=== PATIENT | male | born 1955 | race Caucasian/White ===

== ENCOUNTER 2022-01-13 19:56 | Emergency (ER) | payer OTHER, MEDICAID, SELFPAY ==
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
--- NOTE | ~2022-01-13 | XR_ITS ---
EXAMINATION: XR CHEST CLINICAL INFORMATION: Obesity COMPARISON: None TECHNIQUE: Frontal view of the chest was obtained. FINDINGS: Cardiac silhouette is normal in size. Hypoinflated lungs. No lobar consolidation. No pleural effusion or pneumothorax. XR/XR chest 1V IMPRESSION: No acute pulmonary pathology.
--- NOTE | 2022-01-13 20:03 | ECG_ITS ---
Test Reason : sob Blood Pressure : / mmHG Vent. Rate : 074 BPM Atrial Rate : 074 BPM P-R Int : 128 ms QRS Dur : 108 ms QT Int : 406 ms P-R-T Axes : 025 -23 009 degrees QTc Int : 450 ms Normal sinus rhythm Incomplete right bundle branch block Inferior infarct , age undetermined Abnormal ECG No previous ECGs available Referred By: Theresa Canchola Electronically Signed By:RACHAEL FELTON
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
[2022-01-13 20:23] VITALS: BMI 29.2
[2022-01-13 20:44] LABS: Basophils Percent Auto 0.5 % (0-2); Imm Gran Abs Auto 0.02 X10*3/uL (0.00-0.03); Imm Gran Pct Auto 0.3 % (0.0-0.4); PLT CLUMP 1; SCAN SMEAR FLAG 1
[2022-01-13 20:45] LABS: Eosinophils Absolute Auto 0.2 X10*3/uL (0.0-0.4); Eosinophils Percent Auto 2.6 % (0-4); Hematocrit 42.5 % (42.0-52.0); Hemoglobin 14.4 g/dl (14.0-18.0); Lymphocytes Absolute Auto 0.9 X10*3/uL (1.2-4.9); Lymphocytes Percent Auto 13.4 % (20-40); Mean Corpuscular HGB Conc 33.9 g/dl (31.0-36.0); Mean Corpuscular Hemoglobin 32.5 pg (27.0-33.0); Mean Corpuscular Volume 95.9 fL (80.0-98.0); Mean Platelet Volume 10.4 fL (9.4-12.4); Monocytes Absolute Auto 0.6 X10*3/uL (0.1-1.2); Neutrophils Absolute Auto 4.9 x10*3/uL (2.0-8.3); Neutrophils Percent Auto 74.2 % (45-73); Red Blood Count 4.43 X10*6/uL (4.60-5.80); Red Cell Distribution Width 11.6 % (11.0-16.0)
[2022-01-13 20:49] LABS: MANUAL DIFF FLAG NO; Platelet Count 151 X10*3/uL (160-400); White Blood Count 6.6 X10*3/uL (4.8-10.8)
[2022-01-13 20:56] LABS: Anion Gap 17 (12-20); Blood Urea Nitrogen 22 mg/dL (9-16); Calcium 8.9 mg/dL (8.4-10.2); Carbon Dioxide 23 mmol/L (22-29); Chloride 104 mmol/L (96-108); Creatinine Clr Calc Pharmacy 52.9; Estimated Glomerular Filt Rate 57; Ethanol 83 mg/dL; Glucose Random 135 mg/dL (60-115); Potassium 3.9 mmol/L (3.3-5.1); Sodium 140 mmol/L (135-145)
[2022-01-13 21:02] LABS: Troponin-I High Sensitivity 6.8 ng/L (<3.5-35.0)
[2022-01-13 22:00] LABS: Appearance Urine Clear; Color Urine Straw; Glucose Urine UA Negative (Negative); Leukocyte Esterase Urine Negative (Negative); Nitrite Urine Negative (Negative); PH 5.5 (5.0-9.0); Specific Gravity - Urine <= 1.005 (1.005-1.025); Urine Blood Trace (Negative); Urine Ketones Negative (Negative); Urine Protein Negative (Neg-Trace)
[2022-01-13 22:08] LABS: Bacteria Urine None Seen (None Seen); Hyaline Casts Urine 0-2 /LPF (0-2); RBC Urine 0-2 /HPF (0-2); Squamous Epithelial Cell Urine 0-2 /HPF (0-2); WBC Urine 0-5 /HPF (0-5)
[2022-01-13 22:26] LABS: Amphetamine Screen Urine Not Detected (Not Detect); Barbiturates, Urine Not Detected (Not Detect); Benzodiazepines Screen Urine Not Detected (Not Detect); Cannabinoid Screen Urine Not Detected (Not Detect); Cocaine Screen Urine Not Detected (Not Detect); Fentanyl, urine Not Detected (Not Detect); Opiate Screen Urine Not Detected (Not Detect); Phencyclidine Screen Urine Not Detected (Not Detect)
[2022-01-13 22:44] LABS: Troponin-I High Sensitivity 8.9 ng/L (<3.5-35.0)
== END 2022-01-13 23:13 | disposition home or self-care (01) ==
PROVIDERS: Nurse Practitioner Family; Emergency Provider Internal Medicine
DX: S13.4XXA Sprain of ligaments of cervical spine, initial encounter (principal); R07.89 Other chest pain; R51.9 Headache, unspecified; M54.2 Cervicalgia; V43.52XA Car driver injured in collision with other type car in traffic accident, initial encounter; Y93.9 Activity, unspecified; Y92.410 Unspecified street and highway as the place of occurrence of the external cause; Y99.9 Unspecified external cause status; Z79.899 Other long term (current) drug therapy
CPT/HCPCS: 36415; 70450; 71045; 80048; 80307; 81001; 82077; 84484; 85025; 93005; 99283; 99284

== ENCOUNTER 2025-01-27 12:05 | Inpatient (IN) | payer MEDICARE, MEDICAID, SELFPAY ==
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
--- NOTE | ~2025-01-27 | CT_ITS ---
CLINICAL HISTORY: left sided weakness, cerebellar findings CT angiography head and neck with contrast. 3D Postprocessing. Comparison: None provided Findings: Bovine arch. Intracranial arteries are patent. No aneurysm, dissection, hemodynamically significant stenoses, or occlusion. No abnormal intracranial enhancement. The visualized thyroid gland is unremarkable. No cervical mass or fluid collection. Lung apices clear. No acute fracture. Mild calcified atheromatous plaque of the proximal right ICA. The internal carotids and common carotids arteries are patent. IMPRESSION: 1. No acute intracranial findings. 2. Bovine aortic arch. 3. Mild calcified atheromatous plaque of the proximal right internal carotid artery. This document has been electronically signed by: Priyank Aguilera MD on 01/27/2025 14:50:53
--- NOTE | ~2025-01-27 | MR_ITS ---
CLINICAL HISTORY: TIA MR Brain without gadolinium Comparison: CT of the brain 01/27/2025 at 2:23 p.m. Findings: Right thalamic lacunar focus of the increased T2 and FLAIR signal and increased DWI signal, axial image number 13 of 25 series 6. Partially empty sella, sagittal image number 13 of 25. No midline shift. No hydrocephalus. Vascular flow voids are intact. Orbital contents are unremarkable. The sinuses and mastoid air cells are clear. No focal bone lesion. Few periventricular foci of increased T2 and FLAIR signal. IMPRESSION: 1. Right thalamic lacunar subacute ischemic event. Clinical correlation suggested. 2. Chronic periventricular microvascular ischemic changes. 3. Partially empty sella. This document has been electronically signed by: Priyank Aguilera MD on 01/27/2025 17:35:36
--- NOTE | ~2025-01-27 | CT_ITS ---
CLINICAL HISTORY: LEF SIDED WEAKNESS CT head without contrast Comparison: None provided Findings: No intra-axial mass, midline shift, hydrocephalus, or acute hemorrhage. Mild heterogeneous low attenuation in the periventricular white matter. Sxva-[id number]-pzbymkov cerebral atrophy. There is no sinus or mastoid fluid. The orbits are within normal limits. No skull fracture. IMPRESSION: 1. No acute intracranial findings. 2. Mild chronic periventricular microvascular ischemic disease 3. [id number] cerebral atrophy. This document has been electronically signed by: Priyank Aguilera MD on 01/27/2025 14:36:32
[2025-01-27 12:10] VITALS: BP 157/89; PULSE 89; RESP 16; TEMP 36.4; O2SAT 95; BMI 21.9
--- NOTE | 2025-01-27 12:15 | ED_ITS ---
HPI - General Adult General Chief complaint: Neuro Symptoms/Deficit Stated complaint: L sided arm numbness for hours, diabete? Time Seen by Provider: 01/27/25 13:50 History of Present Illness ED Provider: Karen CA narrative: The patient is a 69-year-old male who has had numbness in his left arm and left leg and some difficulty walking since yesterday. The patient says that he lives in [place]. Despite his symptoms he was able to drive himself to visit a friend who was also his FIELD CONTACT TECHNICIAN in [place]. The patient has a history of a stroke. His FIELD CONTACT TECHNICIAN was concerned that his symptoms could potentially represent another stroke and so she advised him to come to the hospital. He then drove himself to the hospital. He says that he estimates that his symptoms began yesterday afternoon at around 3PM. No fever, sweats, chills. No headache. No chest pain. The patient has a history of coronary disease. He had a STEMI in 2009 with three-vessel disease. He was given a drug-eluting stent in the right coronary artery. He also has a history of CHF. He has a history of diabetes and is on insulin. Also hypertension and hyperlipidemia. He says that he had a stroke at age 54. The patient is usual medications include aspirin, atorvastatin, insulin, and ezetimbe. However he says he has not picked up his prescriptions recently and may has been off his medications for as long as a couple of months. Related Data Allergies Allergy/AdvReac Type Severity Reaction Status Date / Time No Known Allergies Allergy Verified 01/27/25 12:14 Review of Systems 2 Review of Systems: Yes all other systems are reviewed and are negative [facility] Social History Social History Alcohol intake: current Alcohol intake frequency: 3 or more drinks per day Alcohol type: beer Smoked in Last 30 Days: No Use of substances other than those prescribed or required for medical reasons: No Advance Directives: No Advance Directives Information Provided: No Physical Exam ED Vital Signs: Vital Signs - 24 hr 01/27/25 12:10 01/27/25 12:39 Temperature 97.6 F Pulse Rate 89 90 Respiratory Rate 16 16 Blood Pressure 157/89 H 142/96 H Pulse Oximetry 95 97 Oxygen Delivery Method Room Air Room Air BMI result Body Mass Index 21.9 Const Other: The patient is a frail, chronically ill-appearing 69-year-old male who was awake and alert. He does not appear uncomfortable or in respiratory distress. No obvious neurological deficit was apparent. HENMT Other: The face is symmetrical. ?Mucous membranes moist. Eyes Other: Pupils are round equal, lateral gaze is intact bilaterally. Visual oreilly are intact to confrontation. Neck Neck: Yes normal visual inspection, Yes full ROM and Yes no JVD Resp Effort & Inspection: normal respiratory effort Auscultation: clear to auscultation bilaterally Cardio Rate: regular rate Rhythm: regular rhythm Heart sounds: S1 normal heart sound present and S2 normal heart sound present GI Other: The abdomen is soft and nontender Skin Other: Skin is dry and unremarkable Neuro Other: On my initial exam the patient was awake and alert. He has an odd demeanor but he did not seem to have any mental status changes. He seemed appropriately oriented to self, time, and place. Lateral gaze was intact. Visual oreilly were intact to confrontation. There was no facial asymmetry. Speech was clear without aphasia or dysarthria. I felt he had some mild left-sided pronator drift. I also felt that he had some difficulty with left arm finger-nose. I also felt he had a distinctly abnormal gait. His NIH stroke scale was 2 primarily for the left arm symptoms. When I reexamined him after his imaging studies I felt his exam was better. There was still possibly some very mild, almost equivocal left arm pronator drift. However on my repeat exam his left arm finger-nose was much better and his gait was also better. He had normal strength in his legs and heel-ramirez was normal bilaterally. On my initial exam I had not tested his heel-ramirez. Extrem Other: There is no calf swelling or tenderness. No asymmetry. No peripheral edema. Course Course Course Narrative: Rapid medical examination performed in triage by Mer Moyer PA-C. Patient is a 69 year old assigned male at presenting to the emergency department with paresthesias. Patient states that he is having weakness and extremity tingling. Detailed physical exam and review of systems are deferred to the access clinician. EKG and lab ordered. Patient placed back in the waiting room pending room availability and results. Medications Administered Discontinued Medications Generic Name Dose Route Start Last Admin Trade Name Freq PRN Reason Stop Dose Admin Aspirin 325 mg 01/27/25 15:45 01/27/25 16:13 Aspirin 325 Mg Tablet PO 01/27/25 15:46 325 mg ONCE ONE Administration Medical Decision Making Medical Decision Making [facility] Narrative: The patient is a 69-year-old male who reports a history of a stroke at age 54. He also has a history of hypertension, hyperlipidemia and type 2 diabetes as well as coronary disease with a right coronary artery stent. He came to the emergency room today because of left arm and left leg symptoms as well as worsening gait. On my initial exam I thought he had cerebellar findings in the left arm and a very abnormal gait. When I re-examined him after imaging studies his exam was improved. The patient was considered for thrombolytic therapy for a possible stroke but since his symptoms began yesterday at 15:00 he was outside the window for consideration of thrombolytic therapy. On my initial exam I felt that I has a high suspicion for the possibility of a small stroke, possibly a cerebellar stroke. However his symptoms improved significantly between my 1st exam and the exam I performed after his imaging studies were done. The patient also reported that his sense of numbness in the left arm had improved. It is possible that his symptoms could represent a TIA syndrome more than a stroke syndrome. In any event I think that hospitalization is reasonable given his multiple risk factors for vascular disease and his report of not being very compliant with his medications recently. Lab Data 01/27/25 12:46 01/27/25 12:46 Labs: Lab Results 01/27/25 01/27/25 Range/Units 12:46 14:13 WBC 7.2 (4.8-10.8) X10*3/uL RBC 4.44 L (4.60-5.80) X10*6/uL Hgb 15.2 (14.0-18.0) g/dl Hct 42.6 (42.0-52.0) % MCV 95.9 (80.0-98.0) fL MCH 34.2 H (27.0-33.0) pg MCHC 35.7 (31.0-36.0) g/dl RDW 11.7 (11.0-16.0) % Plt Count 147 L (160-400) X10*3/uL MPV 10.8 (9.4-12.4) fL Immature Gran % (Auto) 0.1 (0.0-0.4) % Neut % (Auto) 81.2 H (45-73) % Lymph % (Auto) 10.2 L (20-40) % [place] % (Auto) 7.2 (2-11) % Eos % (Auto) 0.7 (0-4) % Baso % (Auto) 0.6 (0-2) % Lymph # (Auto) 0.7 L (1.2-4.9) X10*3/uL [place] # (Auto) 0.5 (0.1-1.2) X10*3/uL Eos # (Auto) 0.1 (0.0-0.4) X10*3/uL Baso # (Auto) 0.0 (0.0-0.2) X10*3/uL Abs Immat Gran (auto) 0.01 (0.00-0.03) X10*3/uL Absolute Neuts (auto) 5.8 (2.0-8.3) x10*3/uL Absolute Nucleated RBC 0.000 (0.0-0.012) X10*3/uL Nucleated RBC % (auto) 0.0 (0.0-0.2) /100WBC PT 11.5 (10.9-12.4) SEC INR 1.0 (0.9-1.1) Sodium 141 (135-145) mmol/L Potassium 4.4 (3.3-5.1) mmol/L Chloride 105 (96-108) mmol/L Carbon Dioxide 28 (22-29) mmol/L Anion Gap 12 (12-20) BUN 15 (9-16) mg/dL Creatinine 1.24 (0.5-1.4) mg/dL Estim Creat Clear Calc 42.6 Estimated GFR 58 Random Glucose 118 H (60-115) mg/dL Calcium 9.4 (8.4-10.2) mg/dL Magnesium 2.1 (1.6-2.6) mg/dL Total Bilirubin 1.0 (0.0-1.0) mg/dL AST 32 (5-37) U/L ALT 25 (0-40) U/L Alkaline Phosphatase 52 (39-117) U/L Troponin I High Sens 9.3 (<3.5-35.0) ng/L Total Protein 7.4 (6.5-8.0) g/dL Albumin 4.3 (3.5-5.0) g/dL Urine Color Yellow Urine Appearance Clear Urine pH 7.0 (5.0-9.0) Ur Specific [place] 1.020 (1.005-1.025) Urine Protein Trace (Neg-Trace) mg/dL Urine Glucose (UA) Negative (Negative) mg/dL Urine Ketones Trace (Negative) mg/dL Urine Blood Negative (Negative) Urine Nitrite Negative (Negative) Ur Leukocyte Esterase Negative (Negative) Independent Interpretation I performed an independent interpretation of an: EKG Interpretation: EKG at 13:01 shows normal sinus rhythm at 84 beats per minute. No significant change from previous EKG. Discharge Plan Discharge Clinical Impression: Left arm weakness, Difficulty walking Patient Disposition: Admitted As Inpatient Print Language: Luxembourgish
--- NOTE | 2025-01-27 12:16 | ECG_ITS ---
Test Reason : PARATHESIS Blood Pressure : */* mmHG Vent. Rate : 84 BPM Atrial Rate : 84 BPM P-R Int : 132 ms QRS Dur : 98 ms QT Int : 380 ms P-R-T Axes : 24 -23 43 degrees QTcB Int : 449 ms Normal sinus rhythm Inferior infarct (cited on or before 13-Jan-2022) Abnormal ECG When compared with ECG of 13-Jan-2022 22:15, Incomplete right bundle branch block is no longer Present Nonspecific T wave abnormality has replaced inverted T waves in Inferior leads Referred By: Mer Moyer Electronically Signed By: RIOS TILLEY
--- OUTSIDE RECORDS SUMMARY | 2025-01-27 12:29 | XMS_ITS ---
Author Name [facility] Organization Unknown Encounters Encounter Type Encounter Reason Primary Diagnosis Location Date Ambulatory [facility] 06[facility]01/2024 [facility] Care Team Organization Name Specialty Phone Email Start Date End Da te [facility] 08/02/2024 025 [facility] 06/11/2024 [facility] 12/01/2023 024
--- OUTSIDE RECORDS SUMMARY | 2025-01-27 12:29 | XMS_ITS | Clinical Summary ---
Author Organization [facility] ity Address [address] [place] [address] Care Team Providers Care Residence Hall Director Name Role Phone Unavailable Primary Care Provider Unavailabl e Social History Tobacco Use Types Packs/Day Years Used Date Smoking Tobacco: Never Assessed Sex and Gender Information Value Date Recorded Sex Assigned at Not on file Legal Sex Male 6:57 AM EST Gender Identity Not on file Sexual Orientation Not on file Plan of Treatment Health Maintenance Due Date Last Done Comments Hepatitis B Vaccines (2 of 3 - 19+ 3-dose series) 11/25/2020 10/28/2020 Zoster Vaccines (3 of 3) 05/12/2022 03/17/2022, 08/2016 Depression Screening 05/16/2024 COVID-19 Vaccine ( - season) 2025 03/28/2021, 09/12/2020, 08/15/2020 Influenza Vaccine (#1) 2025 , 03/28/2021, 02/19/2019, Additional history exists RSV Immunization Adult Patients (1 - 1-dose 75+ series) 2029 DTaP,Tdap,and Td Vaccines (3 - Td or Tdap) 10/28/2030 10/28/2020, 10/01/2010 Pneumococcal Vaccine: 50+ Years Completed 04/28/2022, 11/13/2020, 05/26/2010 HIB Vaccines Aged Out No longer eligi ble based on patient's age to complete this topic HPV Vaccines Aged Out No longer eligi ble based on patient's age to complete this topic Hepatitis A Vaccines Aged Out No long er eligible based on patient's age to complete this topic IPV Vaccines Aged Out No longer eligi ble based on patient's age to complete this topic MMR Vaccines Aged Out No longer eligi ble based on patient's age to complete this topic Meningococcal ACWY Vaccine Aged Out N o longer eligible based on patient's age to complete this topic Meningococcal B Vaccine Aged Out No l onger eligible based on patient's age to complete this topic RSV Immunization Patients Under 20 months Aged Out No longer eligible based on patient's age to complete this topic Varicella Vaccines Aged Out No longer eligible based on patient's age to complete this topic
--- OUTSIDE RECORDS SUMMARY | 2025-01-27 12:29 | XMS_ITS | Patient Health Record ---
Author Organization [facility] Address [address] [place] [address] Care Team Providers Care Marketing Instructor Name Role Phone TESSA KOHLI Primary Care Provider Matt Wall Unavailable [phone] Allergies No Known Allergies Reason For Referral No Information Medications Medication SIG (Take, Route, Frequency, Duration) Notes Start Date End Date Status Metoprolol Succinate ER 100 MG 1 tablet Orally Once a day Active Lantus SoloStar 100 UNIT/ML 20 units Sub cutaneous daily Active Aspirin Adult Low Dose 81 MG 1 tablet Orally Once a day Active Zetia 10 MG 1 tablet Orally Once a day; Duration: 30 days 11/02/2022 Active metFORMIN HCl ER 500 MG 2 tablet with ev ening meal Orally Once a day; Duration: 30 days Active Tamsulosin HCl 0.4 MG 1 capsule Orally O nce a day Active Spironolactone 25 MG 1 tablet Orally Active Latanoprost 0.005 % 1 drop into affected eye in the evening Ophthalmic Once a day Active Brimonidine Tartrate 0.2 % 1 drop into a ffected eye Ophthalmic every 8 hrs Active Dorzolamide HCl 2 % 1 drop into affected eye Ophthalmic Three times a day Active Atorvastatin Calcium 80 MG 1 tablet Oral ly Once a day; Duration: 30 days Active Immunizations Vaccine Route Administration Date Status Comme nts COVID Moderna Unknown 08/15/2020 Administered COVID Moderna Unknown 09/12/2020 Administered COVID Moderna Unknown 03/28/2021 Administered COVID-19 Pfizer Unknown 04/28/2022 Administered High Dose Fluzone +65 Unknown 01/27/2024 Administered Pneumococcal polysaccharide PPV23 Unknown 11/13/2020 Ad ministered Prevnar 20 Unknown 04/28/2022 Administered Shingrix Unknown 03/17/2022 Administered Shingrix Unknown 01/27/2024 Administered TDAP Unknown 10/28/2020 Administered Social History Tobacco Use: Social History Observation Description Date Details (start date - stop date) Former Smoker NA - NA Tobacco Use/Smoking Question Answer Notes Are you a former smoker How long has it been since you last smoked? > 10 years Alcohol Screen (Audit-C) Question Answer Notes Did you have a drink contain ing alcohol in the past year? Yes How often did you have a dri nk containing alcohol in the past year? 4 or more times a week (4 points) How many drinks did you have on a typical day when you were drinking in the past year? 1 or 2 drinks (0 point) Points 4 Interpretation Positive Problems Problem Type SNOMED Code ICD Code Onset Dates Problem Status W/U Status Risk Notes Problem Disorder due to type 2 diabetes mellitus (166313166) Type 2 diabetes mellitus with unspecified complications (E11.8) Active confirmed Problem Mixed hyperlipidemia (769832371) Mixed hyperlipidemia (E78.2) Active confirmed Problem Alcohol dependence (28833474) Alcohol dependence, uncomplicated (F10.20) Active confirmed Problem Glaucoma (51266233) Unspecified glaucoma (H40.9) Active confirmed Problem Atherosclerotic heart disease of [place] coronary artery without angina pectoris (305655199564572) Atherosclerotic heart disease of [place] coronary artery without angina pectoris (I25.10) Active confirmed Problem Long-term current use of insulin (500147143) 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 Metabolic Panel [id number] Future Test Test Name Order Date COMPREHENSIVE METABOLIC PANEL 12/01/2021 HEMOGLOBIN A1C WITH EST GLUCOSE 12/02/19 LIPID PANEL 12/01/2021 MICROALBUMIN, URINE 12/01/2021 BASIC METABOLIC PANEL 11/10/2022 HEMOGLOBIN A1C WITH EST GLUCOSE 11/11/19 23 LIPID PANEL 11/10/2022 PSA, SCREEN 11/10/2022 GLUCOSE 12/14/2022 HEMOGLOBIN A1C 12/14/2022 LIPID PANEL 12/14/2022 Insurance Providers Payer Name Payer Address Payer Phone Subscriber Number Group Number Insured Name Patient Relationship to Insured Coverage Start Date Coverage End Date Medicare [address] [place] [phone] [id number] Vimal Sandhu Self - patient is the insured [place] [address] [place] [phone] [id number] Vimal Sandhu Self - patient is the insured Medical (General) History Medical History History ICD Code Type 2 diabetes mellitus Glaucoma BPH CAD and s/p stent placement in 2008 and 2012 Hyperlipidemia Surgical History Surgery Date(Month/Year) laser surgery, Dr. Orozco
[2025-01-27 12:39] VITALS: BP 142/96; PULSE 90; RESP 16; O2SAT 97
[2025-01-27 12:51] LABS: MANUAL DIFF FLAG NO
[2025-01-27 12:52] LABS: Hematocrit 42.6 % (42.0-52.0); Hemoglobin 15.2 g/dl (14.0-18.0); Imm Gran Abs Auto 0.01 X10*3/uL (0.00-0.03); Imm Gran Pct Auto 0.1 % (0.0-0.4); Lymphocytes Absolute Auto 0.7 X10*3/uL (1.2-4.9); Mean Corpuscular HGB Conc 35.7 g/dl (31.0-36.0); Mean Corpuscular Hemoglobin 34.2 pg (27.0-33.0); Mean Corpuscular Volume 95.9 fL (80.0-98.0); NRBC Abs Auto 0.000 X10*3/uL (0.0-0.012); NRBC Pct Auto 0.0 /100WBC (0.0-0.2); Platelet Count 147 X10*3/uL (160-400); Red Blood Count 4.44 X10*6/uL (4.60-5.80); White Blood Count 7.2 X10*3/uL (4.8-10.8)
[2025-01-27 12:59] LABS: INTERNATIONAL NORM RATIO 1.0 (0.9-1.1); Prothrombin Time 11.5 SEC (10.9-12.4)
--- NOTE | 2025-01-27 13:01 | PC.NURSE ---
Patient is a 69 yo male who presents with left arm numbness since last night. Placed on a quality assurance monitor final and NSR noted. Alert and oriented. Tongue midline, no droop. No drift noted in all 4 extremities. Lungs clear bilat. Respiratins even and non-labored. Abdomen soft, non-tender with positive bowel sounds. Positive pedal pulses with no edema.
[2025-01-27 13:05] LABS: Alanine Aminotransferase 25 U/L (0-40); Albumin Level 4.3 g/dL (3.5-5.0); Alkaline Phosphatase 52 U/L (39-117); Anion Gap 12 (12-20); Aspartate Amino Transferase 32 U/L (5-37); Blood Urea Nitrogen 15 mg/dL (9-16); Calcium 9.4 mg/dL (8.4-10.2); Carbon Dioxide 28 mmol/L (22-29); Chloride 105 mmol/L (96-108); Creatinine Clr Calc Pharmacy 42.6; Estimated Glomerular Filt Rate 58; Magnesium 2.1 mg/dL (1.6-2.6); Potassium 4.4 mmol/L (3.3-5.1); Sodium 141 mmol/L (135-145); Total Protein 7.4 g/dL (6.5-8.0)
[2025-01-27 13:12] LABS: Troponin-I High Sensitivity 9.3 ng/L (<3.5-35.0)
[2025-01-27 14:23] LABS: Appearance Urine Clear; Glucose Urine UA Negative (Negative); PH 7.0 (5.0-9.0); Specific Gravity - Urine 1.020 (1.005-1.025)
--- NOTE | 2025-01-27 16:20 | P.HPHOSP_ITS ---
History of Present Illness Date of Service: 01/27/25 Chief Complaint: Weakness 69-year-old man presented to the ER with left arm and left leg numbness and some difficulty walking. Apparently he was out with a friend who noticed his symptoms and told him to come to the ER. Apparently his symptoms started yesterday around 15:00. He had no difficulty with speech. He denied chest pain, shortness breath, nausea, vomiting, diarrhea, fever, chills, recent travel, sick contacts. He drove himself to the hospital. Head and neck CTA was negative for acute intracranial findings he was noted to have bovine aortic arch and mild plaque to proximal right internal carotid artery. Patient was given full-dose aspirin in the ER. He will be placed on observation for symptoms of TIA. Review of Systems 2 Review of Systems: Denies any recent fever chills or decrease in appetite respiratory denies any shortness of breath or cough cardiovascular denied chest pain gastrointestinal denies any dysphagia abdominal pain nausea vomiting or diarrhea genitourinary denies any dysuria frequency or hematuria musculoskeletal denies any joint pain or swelling neuropsych denies any weakness or seizures all other systems reviewed are negative [facility] Social History Alcohol intake: current Alcohol intake frequency: 3 or more drinks per day Alcohol type: beer Smoked in Last 30 Days: No Use of substances other than those prescribed or required for medical reasons: No Advance Directives: No Advance Directives Information Provided: No Meds Allergies Allergy/AdvReac Type Severity Reaction Status Date / Time No Known Allergies Allergy Verified 01/27/25 12:14 Active Medications: Current Medications Acetaminophen (Acetaminophen 325 Mg Tablet) 650 mg PO Q6H PRN PRN Reason: Pain, Mild 1-3,fever,headache Calcium Carbonate (Calcium Carbonate 750 Mg Tab.Chew) 750 mg PO Q4H PRN PRN Reason: Heartburn Dextrose (Dextrose 50 % 25 Gm/50 Ml Syringe) 25 gm IVPUSH Q15M PRN; Protocol PRN Reason: per Hypoglycemia Standing Ord. Enoxaparin Sodium (Enoxaparin Sodium 40 Mg/0.4 Ml Syringe) 40 mg SUBCUT Q24H EUGENIO Glucose (Glucose Gel 15 Gm Gel..Gram.) 15 gm PO Q15M PRN; Protocol PRN Reason: per Hypoglycemia Standing Ord. Insulin Human Lispro (Insulin Lispro 100 Unit/Ml 3 Ml Vial) 0 unit SUBCUT QIDACHS [facility]; Protocol Magnesium Hydroxide (Milk Of Magnesia 30 Ml Oral.Susp) 30 ml PO DAILY PRN PRN Reason: Constipation Melatonin (Melatonin 3 Mg Tablet) 6 mg PO BEDTIME PRN PRN Reason: Insomnia Ondansetron HCl (Ondansetron Hcl 4 Mg/2 Ml Vial) 4 mg IVPUSH Q8H PRN PRN Reason: Nausea and Vomiting Sodium Chloride (0.9 % Sodium Chloride Flush 3 Ml Syringe) 3 ml IVFLUSH QSHIFT [facility] Physical Exam 2 Vital Signs and Narrative: Vital Signs: Last Vital Signs Temp 97.6 F 01/27/25 12:10 Pulse 90 01/27/25 12:39 Resp 16 01/27/25 12:39 BP 142/96 H 01/27/25 12:39 Pulse Ox 97 01/27/25 12:39 O2 Del Method Room Air 01/27/25 12:39 BMI result Body Mass Index 21.9 Appearing in no acute distress head is normocephalic atraumatic eyes pupils are PERRLA sclera is anicteric mouth throat mucous membranes are intact and moist neck is supple no lymphadenopathy, no JVD noted lung sounds are clear to auscultation heart regular rate rhythm, clear S1, S2 positive bowel sounds, abdomen is soft, nontender neuro patient is alert x3, no focal deficits Results Labs 01/27/25 12:46 01/27/25 12:46 Labs: Laboratory Results - last 24 hr 01/27/25 01/27/25 12:46 14:13 MCV 95.9 MCH 34.2 H MCHC 35.7 RDW 11.7 Plt Count 147 L MPV 10.8 Immature Gran % (Auto) 0.1 Neut % (Auto) 81.2 H Lymph % (Auto) 10.2 L [place] % (Auto) 7.2 Eos % (Auto) 0.7 Baso % (Auto) 0.6 Lymph # (Auto) 0.7 L [place] # (Auto) 0.5 Eos # (Auto) 0.1 Baso # (Auto) 0.0 Abs Immat Gran (auto) 0.01 Absolute Neuts (auto) 5.8 Absolute Nucleated RBC 0.000 Nucleated RBC % (auto) 0.0 PT 11.5 INR 1.0 Anion Gap 12 Estim Creat Clear Calc 42.6 Estimated GFR 58 Random Glucose 118 H Calcium 9.4 Magnesium 2.1 Total Bilirubin 1.0 AST 32 ALT 25 Alkaline Phosphatase 52 Total Protein 7.4 Albumin 4.3 Urine Color Yellow Urine Appearance Clear Urine pH 7.0 Ur Specific [place] 1.020 Urine Protein Trace Urine Glucose (UA) Negative Urine Ketones Trace Urine Blood Negative Urine Nitrite Negative Ur Leukocyte Esterase Negative Assessment and Plan (1) Left arm weakness: Status: Acute Plan 69 year old man Placed on observation for possible TIA TIA Brain CT neg for acute abnormality MRI, Echo ordered Swallow eval Received asa in the ED Neurology consult check LDL PT/OT Diabetes Mellitus 2 ss, ada diet HTN stable blood pressure not on BP meds at home Hx of CAD with AJ asa, statin Previous stroke asa, statin DVT prophyaxis with lovenox Full code Quality Stroke Does the patient have a stroke diagnosis?: No VTE Prior VTE?: No VTE Risk Level:: Medical - moderate - high VTE Device Contraindication: Treatment Not Indicated VTE Drug Contraindication: N/A - Med Ordered
--- NOTE | 2025-01-27 16:30 | PC.NURSE ---
Patient sent for MRI
[2025-01-27 16:48] LABS: Glucose, Whole Blood 101 mg/dL (60-115)
[2025-01-27 18:00] VITALS: BP 146/74; PULSE 78; RESP 22; O2SAT 96
--- NOTE | 2025-01-27 18:40 | PHA.MEDREC ---
Addendum entered by Stevie Mcwilliams PharmD 01/28/25 10:22: [facility] pharmacy states he has not filled metformin since 2022 and metoprolol since 2023. Original Note: Pharmacy Consult ? Medication Reconciliation Pharmacy has completed the medication reconciliation. Completed medication reconciliation with patient. Patient takes Metformin and Metoprolol but does not know dose or frequency for these meds. Patient fills scripts through [facility] on [address]. Pharmacy will follow up in the morning.
[2025-01-27 19:42] VITALS: BP 129/73; PULSE 75; RESP 16; TEMP 36.8; O2SAT 96
[2025-01-27 19:49] VITALS: BMI 21.4
[2025-01-27 20:43] VITALS: BP 140/89; PULSE 84; RESP 16; TEMP 36; O2SAT 95
[2025-01-27 20:51] LABS: Glucose, Whole Blood 203 mg/dL (60-115)
[2025-01-27] MEDS: Flu Vacc TS2025-26(6mo up)/PF 0.5 ML SYRINGE IM (22:16)
[2025-01-27] MEDS: 0.9 % Sodium Chloride Flush 3 ML SYRINGE IVFLUSH (22:18)
[2025-01-28] VITALS (8 sets, daily range): BP systolic 111–139; BP diastolic 56–84; PULSE 71–94; RESP 16–18; TEMP 36.1–36.6; O2SAT 95–99
[2025-01-28 06:53] LABS: Hematocrit 40.2 % (42.0-52.0); Hemoglobin 14.1 g/dl (14.0-18.0); Mean Corpuscular HGB Conc 35.1 g/dl (31.0-36.0); Mean Corpuscular Hemoglobin 33.7 pg (27.0-33.0); Mean Corpuscular Volume 96.2 fL (80.0-98.0); NRBC Abs Auto 0.000 X10*3/uL (0.0-0.012); NRBC Pct Auto 0.0 /100WBC (0.0-0.2); Platelet Count 136 X10*3/uL (160-400); Red Blood Count 4.18 X10*6/uL (4.60-5.80); White Blood Count 5.9 X10*3/uL (4.8-10.8)
--- NOTE | 2025-01-28 07:00 | CA_ITS ---
Transthoracic Echocardiogram Patient (Last, First, Middle): Vimal Sandhu, Gender: M Date of : 1955 Age: 69 Procedure Date: 01/28/2025 Procedure Type: Transthoracic Echocardiogram Location: [facility] – [place] Height: 157.48 cm Weight: 53.07 kg BSA: 1.52 m2 Heart Rate: 74 bpm BP: 128 / 84 mmHg Technical Data Analyst: SB Referring MD: Georgia Garcia NP Symptoms: TIA Study Quality: Adequate ECG Rhythm: Sinus Conclusions: - The left ventricular systolic function is severely decreased. The visually estimated ejection fraction is between 30-35%. - Wall motion abnormalities related to underlying coronary disease. - No obvious valvular pathology seen on this study. Findings Left Ventricle Mildly increased left ventricular cavity size. There is normal left ventricular wall thickness. The left ventricular systolic function is severely decreased. The visually estimated ejection fraction is between 30 35%. There is evidence of regional wall motion abnormalities. Evidence suggests grade I (mild) diastolic dysfunction. Wall Motion Rest Echo Findings The anterolateral wall is hypokinetic. The inferolateral wall and mid inferior segment are akinetic. 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 Right Ventricle Normal right ventricular cavity size. There is mildly decreased right ventricular systolic function. Atria Both atria are normal in size. Aortic Valve There is a normal trileaflet aortic valve. There is no aortic valve stenosis. There is no aortic valve regurgitation. Mitral Valve The mitral valve appears normal. There is mild mitral valve regurgitation. There is no mitral valve stenosis. Pulmonic Valve The pulmonic valve is likely normal. Tricuspid Valve There is trace tricuspid valve regurgitation. There is no evidence of pulmonary hypertension. Great Vessels The sinuses of valsalva and asc aorta are normal in size. Venous The inferior vena cava was not well visualized. Pericardium/Pleural There is no evidence of pericardial effusion. Prior Study Comparison No prior study available for comparison. Recommendations, Care & Conclusions No obvious valvular pathology seen on this study. Measurements 2D Linear Measurements IVSd: 0.94 0.6-0.9/0.6-1.0 cm LVIDd: 5.75 3.9-5.3/4.2-5.9 cm LVIDd Index: 3.78 2.4-3.2/2.2-3.1 cm/m2 LVIDs: 5.23 2.0-3.6 cm LVPWd: 0.42 0.7-1.1 cm LA Diam: 3.30 2.7-3.8/3.0-4.0 cm LAIDs Index: 2.17 1.5-2.3 cm/m2 LV Mass: 175.14 67-162/88-224 g LV Mass Index: 115.23 43-95/49-115 g/m2 LVOT Diam: 2.00 3.0+(-)1.3 cm 2D Systolic Function EF 4C: 32.30 >55% EF 2C: 32.00 >55% EF BiP: 32.80 >55% Mitral Valve MV Pk E: 0.57 MV PK A: 0.91 MV Decel Time: 135.00 E/A: 0.60 E'Lateral: 6.53 E'Medial: 3.81 E/E' Med: 15.00 E/E' Lat: 8.70 PHT: 39.00 MVA PHT: 5.64 Decel [place]: 4.23 Aortic Valve AoV Pk Ramon: 0.97 AoV Pk Grad: 4.00 JOHANNY: 1.83 LVOT LVOT Pk Ramon: 0.65 LVOT Mn Ramon: 0.40 LVOT VTI: 0.11 LVOT Pk Grad: 2.00 LVOT Mn Grad: 1.00 LVOT Diam: 2.00 LVOT Area: 3.14 Diastolic Function MV Pk E: 0.57 MV Pk A: 0.91 E/A: 0.60 E'Medial: 3.81 E/E' Med: 15.00 E' Laterial: 6.53 E/E' Lat: 8.70 Right Ventricle TAPSE (mm): 16.30 TVS' Ramon: 7.29 Tricuspid Valve TR Pk Ramon: 1.98 TR Pk Grad: 16.00 RA Press: 3.00 RVSP: 19.00 Great Vessels Aorta Sinus of Valsalva: 2.90 2.0-3.5 cm Ao Asc: 2.80 2.1-3.4 cm Pulmonary Veins Pulm Vein S/D 1.40 Pulmonary Valve PV Pk Ramon: 0.69 Peak PV Grad: 2.00 Updated in Other Vendor System with Status of Final Roddy Dorsey MD electronically signed on 01/28/2025 11:35:46 AM with status of Final
[2025-01-28 07:02] LABS: Anion Gap 13 (12-20); Blood Urea Nitrogen 21 mg/dL (9-16); Calcium 9.0 mg/dL (8.4-10.2); Carbon Dioxide 26 mmol/L (22-29); Chloride 105 mmol/L (96-108); Cholesterol 250 mg/dL (<200); Creatinine Clr Calc Pharmacy 38.0; Estimated Glomerular Filt Rate 52; HDL Cholesterol 52 mg/dL (>40); Potassium 4.1 mmol/L (3.3-5.1); Sodium 140 mmol/L (135-145); Triglycerides 296 mg/dL (<150)
[2025-01-28 07:05] LABS: Glucose, Whole Blood 103 mg/dL (60-115)
--- NOTE | 2025-01-28 07:36 | P.PNIM_ITS ---
Subjective Subjective Date of Service: 01/28/25 Interval History: Patient has residual left-sided weakness from likely subacute small right posterior limb of internal capsule/thalamic area ischemic infarction resulting in left hemiparesis affecting arm or leg Is on aspirin, up to the statin, neuro consulted -likely progressing towards his baseline Blood pressure-under control hence we will not initiate any medication PT likely would benefit with outpatient PT Review of Systems Review of Systems: Yes all other systems are reviewed and are negative Physical Exam 2 Exam: Exam: General: AOx3, no acute distress Resp: CTA bilaterally CVS: S1, S2, RRR GI: +BS, NT, no distention Skin: Warm, dry Neuro: Mild left facial droop, left-sided weakness, progressing towards his baseline Vital Signs: Vital Signs: Last Vital Signs Temp 97.1 F 01/28/25 07:04 Pulse 71 01/28/25 07:04 Resp 18 01/28/25 07:04 BP 129/84 01/28/25 07:04 Pulse Ox 96 01/28/25 07:04 O2 Del Method Room Air 01/28/25 07:04 BMI result Body Mass Index 21.4 Objective Data Active Medications Acetaminophen (Acetaminophen 325 Mg Tablet) 650 mg PO Q6H PRN PRN Reason: Pain, Mild 1-3,fever,headache Aspirin (Aspirin 81 Mg Tab.Chew) 81 mg PO DAILY [facility] Atorvastatin Calcium (Atorvastatin Calcium 40 Mg Tablet) 40 mg PO BEDTIME [facility] Last Admin: 01/27/25 22:18 Dose: 40 mg Documented By: ANTONIO Calcium Carbonate (Calcium Carbonate 750 Mg Tab.Chew) 750 mg PO Q4H PRN PRN Reason: Heartburn Dextrose (Dextrose 50 % 25 Gm/50 Ml Syringe) 25 gm IVPUSH Q15M PRN; Protocol PRN Reason: per Hypoglycemia Standing Ord. Enoxaparin Sodium (Enoxaparin Sodium 40 Mg/0.4 Ml Syringe) 40 mg SUBCUT Q24H [facility] Last Admin: 01/27/25 17:38 Dose: 40 mg Documented By: ELIZABETH Glucose (Glucose Gel 15 Gm Gel..Gram.) 15 gm PO Q15M PRN; Protocol PRN Reason: per Hypoglycemia Standing Ord. Insulin Human Lispro (Insulin Lispro 100 Unit/Ml 3 Ml Vial) 0 unit SUBCUT QIDACHS [facility]; Protocol Last Admin: 01/27/25 22:17 Dose: 4 unit Documented By: ANTONIO Magnesium Hydroxide (Milk Of Magnesia 30 Ml Oral.Susp) 30 ml PO DAILY PRN PRN Reason: Constipation Melatonin (Melatonin 3 Mg Tablet) 6 mg PO BEDTIME PRN PRN Reason: Insomnia Ondansetron HCl (Ondansetron Hcl 4 Mg/2 Ml Vial) 4 mg IVPUSH Q8H PRN PRN Reason: Nausea and Vomiting Sodium Chloride (0.9 % Sodium Chloride Flush 3 Ml Syringe) [facility] Admin: 01/27/25 22:18 Dose: 3 ml Documented By: ANTONIO Labs 01/28/25 05:53 01/28/25 05:53 Labs: Laboratory Results - last 24 hr 01/27/25 01/27/25 01/27/25 12:46 14:13 16:46 MCV 95.9 MCH 34.2 H MCHC 35.7 RDW 11.7 Plt Count 147 L MPV 10.8 Immature Gran % (Auto) 0.1 Neut % (Auto) 81.2 H Lymph % (Auto) 10.2 L [place] % (Auto) 7.2 Eos % (Auto) 0.7 Baso % (Auto) 0.6 Lymph # (Auto) 0.7 L [place] # (Auto) 0.5 Eos # (Auto) 0.1 Baso # (Auto) 0.0 Abs Immat Gran (auto) 0.01 Absolute Neuts (auto) 5.8 Absolute Nucleated RBC 0.000 Nucleated RBC % (auto) 0.0 PT 11.5 INR 1.0 Anion Gap 12 Estim Creat Clear Calc 42.6 Estimated GFR 58 POC Glucose 101 Random Glucose 118 H Calcium 9.4 Magnesium 2.1 Total Bilirubin 1.0 AST 32 ALT 25 Alkaline Phosphatase 52 Troponin I High Sens 9.3 Total Protein 7.4 Albumin 4.3 Triglycerides Cholesterol LDL Cholesterol, Calc HDL Cholesterol Urine Color Yellow Urine Appearance Clear Urine pH 7.0 Ur Specific [place] 1.020 Urine Protein Trace Urine Glucose (UA) Negative Urine Ketones Trace Urine Blood Negative Urine Nitrite Negative Ur Leukocyte Esterase Negative 01/27/25 01/28/25 01/28/25 20:48 05:53 06:52 MCV 96.2 MCH 33.7 H MCHC 35.1 RDW 11.8 Plt Count 136 L MPV 11.5 Immature Gran % (Auto) Neut % (Auto) Lymph % (Auto) [place] % (Auto) Eos % (Auto) Baso % (Auto) Lymph # (Auto) [place] # (Auto) Eos # (Auto) Baso # (Auto) Abs Immat Gran (auto) Absolute Neuts (auto) Absolute Nucleated RBC 0.000 Nucleated RBC % (auto) 0.0 PT INR Anion Gap 13 Estim Creat Clear Calc 38.0 Estimated GFR 52 POC Glucose 203 H 103 Random Glucose 109 Calcium 9.0 Magnesium Total Bilirubin AST ALT Alkaline Phosphatase Troponin I High Sens Total Protein Albumin Triglycerides 296 H Cholesterol 250 H LDL Cholesterol, Calc 139 H HDL Cholesterol 52 Urine Color Urine Appearance Urine pH Ur Specific [place] Urine Protein Urine Glucose (UA) Urine Ketones Urine Blood Urine Nitrite Ur Leukocyte Esterase Assessment and Plan (1) Stroke: Status: Acute Assessment and Plan: Patient with a history of CAD, STEMI 2009, triple-vessel disease, AJ RCA, HFrEF, HTN, HLD, prior stroke 54 H, DM type 2 who likely was not adherent to medications given insurance issues suffered a subacute stroke with workup revealing Subacute onset small right posterior limb of internal capsule/thalamic area ischemic infarction resulting in left hemiparesis affecting arm or leg- progressing towards his baseline. # Subacute onset small right posterior limb of internal capsule/thalamic area ischemic infarction resulting in left hemiparesis affecting arm or leg # prior history of stroke at the age of 54 Given etiology as not having meds due to insurance issues, it has been reinforced and patient is progressing towards his baseline functional status Patient to continue DAPT-we will initiate Plavix, we will increase statin to 80 mg daily, PT suggesting outpatient physical therapy services Patient ambulating independently # prior history of CAD # HFrEF LVEF 30-35% with regional wall motion abnormalities # Grade 1 diastolic dysfunction # h/o STEMI 2009 Hypercholesterolemia Started the patient on sitagliptin Patient needs GDM T-currently normotensive hence unable to initiate Entresto Increase statin to 80 mg DM type 2 Euglycemic, we will continue insulin sliding scale We will check A1c DVT prophylaxis with Lovenox Disposition-likely will be discharged tomorrow pending VNA/home services This note is constructed using voice recognition software. While every effort has been made to ensure accuracy, rail signal designer errors may have been included. Quality Stroke Does the patient have a stroke diagnosis?: No VTE Prior VTE?: No VTE Risk Level:: Medical - moderate - high VTE Device Contraindication: Treatment Not Indicated VTE Drug Contraindication: N/A - Med Ordered
[2025-01-28] MEDS: 0.9 % Sodium Chloride Flush 3 ML SYRINGE IVFLUSH ×3 (09:21→23:36)
--- NOTE | 2025-01-28 09:27 | PM.NEUROCN ---
History of Present Illness Data of Consult Service Date: 01/28/25 Primary Care Provider: Unknown Physician HPI Reason for consult: Stroke 69 years old man with hypertension came to hospital with new onset of left-sided weakness. It started couple of days ago and initially involve left arm and then left leg. There was no numbness. When he tried to use his arm and hand it was not as strong as it used to be. It lasted for couple of days and then he was back to baseline. There was no trauma or pain. Review of Systems Review of Systems: No cardiac symptom or cold or flu-like illness PMFSH Social History Social History Household Members: Family Housing: House Do you presently have visiting nurse or other home services: No Alcohol intake: current Alcohol intake frequency: 3 or more drinks per day Alcohol type: beer Patient Tobacco Use Status: Former Tobacco user Smoked in Last 30 Days: No e-Cigarette/Vaping Use: Never Used Patient Interested in Nicotine Replacement: No Patient Given Instructions on How to Stop Smoking: No Second Hand Smoke Exposure: No Use of substances other than those prescribed or required for medical reasons: No Have you been hit, kicked, punched, or otherwise hurt by someone within the past year? If so, by whom?: No Do you feel safe in your current relationship?: No Is there a partner from a previous relationship who is making you feel unsafe now?: No Are you made to feel afraid or neglected: No Advance Directives: No Advance Directives Information Provided: No Recently lost weight without trying: Yes How much weight loss: 2-13 pounds Eating poorly because of decreased appetite: No Nutrition screen score: 3 Nutrition Risks: On aspiration precautions Poor oral hygiene: Yes Meds Allergies Allergy/AdvReac Type Severity Reaction Status Date / Time No Known Allergies Allergy Verified 01/27/25 12:14 Active Medications: Current Medications Acetaminophen (Acetaminophen 325 Mg Tablet) 650 mg PO Q6H PRN PRN Reason: Pain, Mild 1-3,fever,headache Aspirin (Aspirin 81 Mg Tab.Chew) 81 mg PO DAILY [facility] Last Admin: 01/28/25 09:19 Dose: 81 mg Atorvastatin Calcium (Atorvastatin Calcium 40 Mg Tablet) 40 mg PO BEDTIME [facility] Last Admin: 01/27/25 22:18 Dose: 40 mg Calcium Carbonate (Calcium Carbonate 750 Mg Tab.Chew) 750 mg PO Q4H PRN PRN Reason: Heartburn Dextrose (Dextrose 50 % 25 Gm/50 Ml Syringe) 25 gm IVPUSH Q15M PRN; Protocol PRN Reason: per Hypoglycemia Standing Ord. Enoxaparin Sodium (Enoxaparin Sodium 40 Mg/0.4 Ml Syringe) 40 mg SUBCUT Q24H [facility] Last Admin: 01/27/25 17:38 Dose: 40 mg Glucose (Glucose Gel 15 Gm Gel..Gram.) 15 gm PO Q15M PRN; Protocol PRN Reason: per Hypoglycemia Standing Ord. Insulin Human Lispro (Insulin Lispro 100 Unit/Ml 3 Ml Vial) 0 unit SUBCUT QIDACHS [facility]; Protocol Last Admin: 01/28/25 07:53 Dose: Not Given Magnesium Hydroxide (Milk Of Magnesia 30 Ml Oral.Susp) 30 ml PO DAILY PRN PRN Reason: Constipation Melatonin (Melatonin 3 Mg Tablet) 6 mg PO BEDTIME PRN PRN Reason: Insomnia Ondansetron HCl (Ondansetron Hcl 4 Mg/2 Ml Vial) 4 mg IVPUSH Q8H PRN PRN Reason: Nausea and Vomiting Sodium Chloride (0.9 % Sodium Chloride Flush 3 Ml Syringe) 3 ml IVFLUSH QSHIFT [facility] Last Admin: 01/28/25 09:21 Dose: 3 ml Home Medications ?Medication ?Instructions ?Recorded ?Confirmed ?Last Taken ?Type aspirin 81 mg chewable tablet 162 mg PO DAILY 01/27/25 01/27/25 Unknown History brimonidine 0.2 % eye drops 1 drp ophthalmic (eye) BID 01/27/25 01/27/25 Unknown History dorzolamide 2 % eye drops 1 drp ophthalmic (eye) BID 01/27/25 01/27/25 Unknown History insulin glargine 100 unit/mL (3 20 unit subcut DAILY 01/27/25 01/27/25 01/27/25 History mL) subcutaneous pen (Lantus Solostar U-100 Insulin) Physical Exam Vital Signs: Vital Signs: Last Vital Signs Temp 97.1 F 01/28/25 07:04 Pulse 71 01/28/25 07:04 Resp 18 01/28/25 07:04 BP 129/84 01/28/25 07:04 Pulse Ox 96 01/28/25 07:04 O2 Del Method Room Air 01/28/25 07:04 BMI result Body Mass Index 21.4 Neuro: Other: He is alert and awake with normal spontaneity of speech fluency comprehension and affect. Face is symmetrical. Visual oreilly are full. Extraocular muscles were intact. Pupils are equal and reactive to light. There was no pronator drift. Mrrgsj-zb-bgck testing is normal. Deep tendon reflexes are absent with flexor plantars. Gait is cautious. Speech is normal. Results Labs 01/28/25 05:53 01/28/25 05:53 Labs: Short CBC 01/27/25 01/28/25 Range/Units 12:46 05:53 WBC 7.2 5.9 (4.8-10.8) X10*3/uL Hgb 15.2 14.1 (14.0-18.0) g/dl Hct 42.6 40.2 L (42.0-52.0) % Plt Count 147 L 136 L (160-400) X10*3/uL BMP 01/27/25 01/28/25 12:46 05:53 Sodium 141 140 Potassium 4.4 4.1 Chloride 105 105 Carbon Dioxide 28 26 BUN 15 21 H Creatinine 1.24 1.36 Calcium 9.4 9.0 Liver Function 01/27/25 Range/Units 12:46 Total Bilirubin 1.0 (0.0-1.0) mg/dL AST 32 (5-37) U/L ALT 25 (0-40) U/L Alkaline Phosphatase 52 (39-117) U/L Albumin 4.3 (3.5-5.0) g/dL Urine 01/27/25 Range/Units 14:13 Urine Color Yellow Urine Appearance Clear Urine pH 7.0 (5.0-9.0) Ur Specific [place] 1.020 (1.005-1.025) Urine Protein Trace (Neg-Trace) mg/dL Urine Glucose (UA) Negative (Negative) mg/dL MRI of brain revealed a faint right posterior limb of internal capsule/thalamic area restricted area of diffusion. FLAIR sequence revealed similar chronic bilateral small microvascular ischemic lesions. CTA did not reveal any significant large vessel disease. EKG revealed normal sinus rhythm. Assessment and Plan (1) Cerebral infarction: Qualifiers: Cerebral infarction mechanism: thrombosis Precerebral and cerebral artery: other cerebral artery Qualified Code(s): I63.39 - Cerebral infarction due to thrombosis of other cerebral artery Status: Acute 69 years old man with small right posterior limb of internal capsule/thalamic area ischemic infarction resulting in left hemiparesis affecting arm or leg. He was already better with resolution of most of the symptoms. MRI also revealed chronic microvascular ischemic lesions. Mainstay of management is blood pressure control, statin, and anti-platelet agent. Procedures Date of Service Date of Service: 01/28/25
[2025-01-28 10:57] LABS: Glucose, Whole Blood 201 mg/dL (60-115)
--- NOTE | 2025-01-28 11:06 | MHC.CM.PN ---
IMM 01/28/25, Pt. lives with his 2 brothers, he has [employer] services 7.5 hrs per week, he does not use DME. PCP is Dr. Saulo Romero, on [facility]. HCP is his sister Michelle Sandhu, copy requested. Pt.'s car is here, he will drive himself home. OT has rec. home with svces, awaiting PT eval, DCP: home with services. CM to follow for DC needs.
--- NOTE | 2025-01-28 15:21 | MHC.CM.PN ---
Per rounds, pt. not ready to DC, will have assessments for CVA.
[2025-01-28 15:56] LABS: Glucose, Whole Blood 158 mg/dL (60-115)
[2025-01-28 16:43] LABS: Hemoglobin A1C 161.2678 umol/L; Total Hemoglobin (HGBA1C) 3738.0056 umol/L
[2025-01-28 17:05] LABS: Thyroid Stimulating Hormone 2.34 uIU/mL (0.32-4.0)
[2025-01-28 20:27] LABS: Glucose, Whole Blood 190 mg/dL (60-115)
[2025-01-29 03:23] VITALS: BP 121/70; PULSE 80; RESP 18; TEMP 36.1; O2SAT 95
[2025-01-29 06:14] LABS: MANUAL DIFF FLAG NO
[2025-01-29 06:39] LABS: Alanine Aminotransferase 20 U/L (0-40); Albumin Level 3.6 g/dL (3.5-5.0); Alkaline Phosphatase 43 U/L (39-117); Anion Gap 13 (12-20); Aspartate Amino Transferase 25 U/L (5-37); Blood Urea Nitrogen 23 mg/dL (9-16); Calcium 9.2 mg/dL (8.4-10.2); Carbon Dioxide 24 mmol/L (22-29); Chloride 105 mmol/L (96-108); Creatinine Clr Calc Pharmacy 43.1; Estimated Glomerular Filt Rate 60; Potassium 4.5 mmol/L (3.3-5.1); Sodium 137 mmol/L (135-145); Total Protein 6.5 g/dL (6.5-8.0)
[2025-01-29 06:40] LABS: Hematocrit 41.2 % (42.0-52.0); Hemoglobin 14.3 g/dl (14.0-18.0); Imm Gran Abs Auto 0.01 X10*3/uL (0.00-0.03); Imm Gran Pct Auto 0.2 % (0.0-0.4); Lymphocytes Absolute Auto 0.7 X10*3/uL (1.2-4.9); Mean Corpuscular HGB Conc 34.7 g/dl (31.0-36.0); Mean Corpuscular Hemoglobin 33.6 pg (27.0-33.0); Mean Corpuscular Volume 96.9 fL (80.0-98.0); NRBC Abs Auto 0.000 X10*3/uL (0.0-0.012); NRBC Pct Auto 0.0 /100WBC (0.0-0.2); Platelet Count 117 X10*3/uL (160-400); Red Blood Count 4.25 X10*6/uL (4.60-5.80); White Blood Count 5.0 X10*3/uL (4.8-10.8)
[2025-01-29 07:19] LABS: Glucose, Whole Blood 196 mg/dL (60-115)
--- NOTE | 2025-01-29 07:20 | P.PNIM_ITS ---
Subjective Subjective Date of Service: 01/29/25 Interval History: Patient anxious Physical Exam 2 Vital Signs: Vital Signs: Last Vital Signs Temp 96.9 F 01/29/25 03:23 Pulse 80 01/29/25 03:23 Resp 18 01/29/25 03:23 BP 121/70 01/29/25 03:23 Pulse Ox 95 01/29/25 03:23 O2 Del Method Room Air 01/29/25 03:23 BMI result Body Mass Index 21.4 Objective Data Active Medications Acetaminophen (Acetaminophen 325 Mg Tablet) 650 mg PO Q6H PRN PRN Reason: Pain, Mild 1-3,fever,headache Aspirin (Aspirin 81 Mg Tab.Chew) 81 mg PO DAILY [facility] Last Admin: 01/28/25 09:19 Dose: 81 mg Documented By: PRINCESS Atorvastatin Calcium (Atorvastatin Calcium 80 Mg Tablet) 80 mg PO BEDTIME [facility] Last Admin: 01/28/25 20:57 Dose: 80 mg Documented By: ANTONIO Calcium Carbonate (Calcium Carbonate 750 Mg Tab.Chew) 750 mg PO Q4H PRN PRN Reason: Heartburn Clopidogrel Bisulfate (Clopidogrel Bisulfate 75 Mg Tablet) 75 mg PO DAILY [facility] Last Admin: 01/28/25 17:22 Dose: 75 mg Documented By: PRINCESS Dextrose (Dextrose 50 % 25 Gm/50 Ml Syringe) 25 gm IVPUSH Q15M PRN; Protocol PRN Reason: per Hypoglycemia Standing Ord. Enoxaparin Sodium (Enoxaparin Sodium 40 Mg/0.4 Ml Syringe) 40 mg SUBCUT Q24H [facility] Last Admin: 01/28/25 17:22 Dose: 40 mg Documented By: PRINCESS Glucose (Glucose Gel 15 Gm Gel..Gram.) 15 gm PO Q15M PRN; Protocol PRN Reason: per Hypoglycemia Standing Ord. Insulin Human Lispro (Insulin Lispro 100 Unit/Ml 3 Ml Vial) 0 unit SUBCUT QIDACHS [facility]; Protocol Last Admin: 01/28/25 20:57 Dose: 2 unit Documented By: ANTONIO Magnesium Hydroxide (Milk Of Magnesia 30 Ml Oral.Susp) 30 ml PO DAILY PRN PRN Reason: Constipation Melatonin (Melatonin 3 Mg Tablet) 6 mg PO BEDTIME PRN PRN Reason: Insomnia Ondansetron HCl (Ondansetron Hcl 4 Mg/2 Ml Vial) 4 mg IVPUSH Q8H PRN PRN Reason: Nausea and Vomiting Sitagliptin Phosphate (Sitagliptin Phosphate 25 Mg Tablet) 25 mg PO DAILY [facility] Sodium Chloride (0.9 % Sodium Chloride Flush 3 Ml Syringe) 3 ml IVFLUSH QSHIFT [facility] Last Admin: 01/28/25 23:36 Dose: 3 ml Documented By: ANTONIO Labs 01/29/25 05:42 01/29/25 05:42 Labs: Laboratory Results - last 24 hr 01/28/25 01/28/25 01/28/25 05:53 10:50 15:51 MCV MCH MCHC RDW Plt Count MPV Immature Gran % (Auto) Neut % (Auto) Lymph % (Auto) [place] % (Auto) Eos % (Auto) Baso % (Auto) Lymph # (Auto) [place] # (Auto) Eos # (Auto) Baso # (Auto) Abs Immat Gran (auto) Absolute Neuts (auto) Absolute Nucleated RBC Nucleated RBC % (auto) Anion Gap Estim Creat Clear Calc Estimated GFR POC Glucose 201 H 158 H Random Glucose Estimat Average Glucose 128 Hemoglobin A1c % 6.1 H Calcium Total Bilirubin AST ALT Alkaline Phosphatase Total Protein Albumin TSH 2.34 01/28/25 01/29/25 01/29/25 20:14 05:42 07:11 MCV 96.9 MCH 33.6 H MCHC 34.7 RDW 11.5 Plt Count 117 L MPV 11.3 Immature Gran % (Auto) 0.2 Neut % (Auto) 70.4 Lymph % (Auto) 13.5 L [place] % (Auto) 12.7 H Eos % (Auto) 2.6 Baso % (Auto) 0.6 Lymph # (Auto) 0.7 L [place] # (Auto) 0.6 Eos # (Auto) 0.1 Baso # (Auto) 0.0 Abs Immat Gran (auto) 0.01 Absolute Neuts (auto) 3.6 Absolute Nucleated RBC 0.000 Nucleated RBC % (auto) 0.0 Anion Gap 13 Estim Creat Clear Calc 43.1 Estimated GFR 60 POC Glucose 190 H 196 H Random Glucose 212 H Estimat Average Glucose Hemoglobin A1c % Calcium 9.2 Total Bilirubin 0.4 AST 25 ALT 20 Alkaline Phosphatase 43 Total Protein 6.5 Albumin 3.6 TSH Quality Stroke Does the patient have a stroke diagnosis?: No VTE Prior VTE?: No VTE Risk Level:: Medical - moderate - high VTE Device Contraindication: Treatment Not Indicated VTE Drug Contraindication: N/A - Med Ordered
[2025-01-29 07:34] VITALS: BP 138/92; PULSE 74; RESP 20; TEMP 36.5; O2SAT 95
[2025-01-29] MEDS: 0.9 % Sodium Chloride Flush 3 ML SYRINGE IVFLUSH (08:10)
--- NOTE | 2025-01-29 09:53 | P.DS_ITS ---
DS: Providers Provider Date of Service: 01/29/25 Date of admission: 01/28/25 09:21 Date of discharge: 01/29/25 Primary care physician: Oscar Romero MD Consults: 01/27/25 16:12 Consult to Neurology Routine Consulting Provider: Saulo Hazel Reason for consultation: TIA DS: Diagnosis Discharge Diagnosis (1) Stroke: Status: Acute DS: Summary Hospital Course Hospital Course: Patient with a history of CAD, STEMI 2009, triple-vessel disease, AJ RCA, HFrEF, HTN, HLD, prior stroke 54 H, DM type 2 who likely was not adherent to medications given insurance issues suffered a subacute stroke with workup revealing Subacute onset small right posterior limb of internal capsule/thalamic area ischemic infarction resulting in left hemiparesis affecting arm or leg- progressing towards his baseline. # Subacute onset small right posterior limb of internal capsule/thalamic area ischemic infarction resulting in left hemiparesis affecting arm or leg # prior history of stroke at the age of 54 Due to insurance issues, patient likely did not take his home meds, and likely suffered a subacute infarct. it has been reinforced and patient is progressing towards his baseline functional status Patient to continue DAPT-we will initiate Plavix, we will increase statin to 80 mg daily, PT needs outpatient physical therapy services Patient ambulating independently # prior history of CAD # HFrEF LVEF 30-35% with regional wall motion abnormalities # Grade 1 diastolic dysfunction # h/o STEMI 2009 # Hypercholesterolemia Patient has new onset HFrEF likely with chronic medical comorbidities, Started the patient on sitagliptin this admission for GDMT. Patient needs GDM T- currently normotensive hence unable to initiate Entresto - will defer to PCP f/up Increased statin to 80 mg from 40mg home dose DM type 2 Euglycemic,cont home Insulin dosage Strict Diabteic diet reinforced DVT prophylaxis with Lovenox Disposition-likely will be discharged tomorrow pending VNA/home services This note is constructed using voice recognition software. While every effort has been made to ensure accuracy, bath steward/stewardess errors may have been included. Time spent discussing smoking cessation with patient: more than 10 minutes Time Attestation Discharge Coordination Time (in mins): 35 Quality: Safe Use of Opioids Does Pt have an Active Cancer Diagnosis on the Problem List?: No Quality: Stroke Does the patient have a stroke diagnosis?: Yes Reason for No Anti-thrombotic at DC: N/A - Med Ordered Reason for No Anticoagulant at DC: Drug treatment not indicated (Patient was sinus on admission, on telemetry during this hospitalization) Reason Not Initiating IV-Tpa: Drug treatment not indicated Reason for No Anti-thrombotic by Day Two: Not indicated Reason for No Statin at DC: N/A - Med Ordered (Increased dose to 80 mg) Physical Exam Vital Signs: Vital Signs: Last Vital Signs Temp 97.7 F 01/29/25 07:34 Pulse 74 01/29/25 07:34 Resp 20 01/29/25 07:34 BP 138/92 H 01/29/25 07:34 Pulse Ox 95 01/29/25 07:34 O2 Del Method Room Air 01/29/25 07:34 BMI result Body Mass Index 21.4 DS: Data Data Completed and Pending Labs on day of discharge: Laboratory Results - last 24 hr 01/28/25 01/28/25 01/28/25 05:53 10:50 15:51 WBC RBC Hgb Hct MCV MCH MCHC RDW Plt Count MPV Immature Gran % (Auto) Neut % (Auto) Lymph % (Auto) Hanson % (Auto) Eos % (Auto) Baso % (Auto) Lymph # (Auto) Hanson # (Auto) Eos # (Auto) Baso # (Auto) Abs Immat Gran (auto) Absolute Neuts (auto) Absolute Nucleated RBC Nucleated RBC % (auto) Sodium Potassium Chloride Carbon Dioxide Anion Gap BUN Creatinine Estim Creat Clear Calc Estimated GFR POC Glucose 201 H 158 H Random Glucose Estimat Average Glucose 128 Hemoglobin A1c % 6.1 H Calcium Total Bilirubin AST ALT Alkaline Phosphatase Total Protein Albumin TSH 2.34 01/28/25 01/29/25 01/29/25 20:14 05:42 07:11 WBC 5.0 RBC 4.25 L Hgb 14.3 Hct 41.2 L MCV 96.9 MCH 33.6 H MCHC 34.7 RDW 11.5 Plt Count 117 L MPV 11.3 Immature Gran % (Auto) 0.2 Neut % (Auto) 70.4 Lymph % (Auto) 13.5 L Hanson % (Auto) 12.7 H Eos % (Auto) 2.6 Baso % (Auto) 0.6 Lymph # (Auto) 0.7 L Hanson # (Auto) 0.6 Eos # (Auto) 0.1 Baso # (Auto) 0.0 Abs Immat Gran (auto) 0.01 Absolute Neuts (auto) 3.6 Absolute Nucleated RBC 0.000 Nucleated RBC % (auto) 0.0 Sodium 137 Potassium 4.5 Chloride 105 Carbon Dioxide 24 Anion Gap 13 BUN 23 H Creatinine 1.20 Estim Creat Clear Calc 43.1 Estimated GFR 60 POC Glucose 190 H 196 H Random Glucose 212 H Estimat Average Glucose Hemoglobin A1c % Calcium 9.2 Total Bilirubin 0.4 AST 25 ALT 20 Alkaline Phosphatase 43 Total Protein 6.5 Albumin 3.6 TSH Discharge Plan Discharge Anticipated Discharge Date/Time: 01/29/25 09:49 Patient Disposition: Home Health Service Discharge Diagnosis: Subacute onset small right posterior limb of internal capsule/thalamic area ischemic infarction resulting in left hemiparesis affecting arm or leg Referrals: Oscar Romero MD [Primary Care Provider, Primary Care] - 1 Week Saulo Hazel MD [Physician, Neurology] - 1 Week Referral Note: f/up of stroke Discharge Medications: New atorvastatin 80 mg Tablet 80 mg PO BEDTIME 30 Days Qty: 30 3RF clopidogrel 75 mg Tablet 75 mg PO DAILY 60 Days Qty: 60 3RF Januvia 25 mg Tablet 25 mg PO DAILY 30 Days Qty: 30 3RF Continued brimonidine 0.2 % drops 1 drp ophthalmic (eye) BID aspirin 81 mg Tablet,Chewable 162 mg PO DAILY dorzolamide 2 % drops 1 drp ophthalmic (eye) BID insulin glargine [Lantus Solostar U-100 Insulin] 100 unit/mL (3 mL) insulin pen 20 unit subcut DAILY Discharge Orders: Discharge Order (Routine); Ordered 01/29/25 Ordered By: Oralia Verduzco Diet: Low salt diet Activity on Discharge: As tolerated Stand Alone Forms: Patient Portal Discharge page Print Language: Portuguese Care Plan Goals: Patient has been started on sitagliptin and would benefit from outpatient Entresto Patient has been in sinus rhythm and hence not initiating him on any anticoagulation Patient likely needs outpatient physical therapy Health Concerns: Stroke prevention Hypertension control Euglycemic control PT OT services Plan of Treatment: Patient has been started on sitagliptin and would benefit from outpatient Entresto Patient has been in sinus rhythm and hence not initiating him on any anticoagulation Patient likely needs outpatient physical therapy Assessment: Patient has been started on sitagliptin and would benefit from outpatient Entresto Patient has been in sinus rhythm and hence not initiating him on any anticoagulation Patient likely needs outpatient physical therapy Patient Instructions: Stroke Prevention (GEN)
--- NOTE | 2025-01-29 10:31 | MHC.CM.PN ---
Addendum entered by Tia Hinds 01/29/25 15:11: A Ly[employer] was provided for transportation home. Original Note: IMM 01/28/25 Patient is cleared to discharge per MD. PT recommendation is out patient rehab. Patient will discharge to home today. He has arranged for transportation home.
[2025-01-29 10:58] LABS: Glucose, Whole Blood 251 mg/dL (60-115)
--- NOTE | 2025-01-29 11:05 | MHC.STROKE ---
Met with patient in room 477. Stroke Education reviewed and pamphlet provided. We reviewed discharge medications and plan of care at home that includes services with PT. Pt agreeable to plan. History reviewed including medical history, social hx, medications, activity and diet. All questions answered. Pt is alert and oriented x 4. answering questions appropriately. moving all extremities, speech clear. Plan is for discharge home today
[2025-01-29 11:07] VITALS: BP 136/85; PULSE 79; RESP 20; TEMP 36.5; O2SAT 95
== END 2025-01-29 14:09 | disposition home health service (06) | DRG 65 ==
LOC: HO.ED 16:15 → HO.EDOVER 16:22 → HO.IMC 19:39
PROVIDERS: Physician Assistant Medical; Admitting Provider Nurse Practitioner Acute Care; Emergency Provider Emergency Medicine; PCP Hospitalist; Visit Provider Student in an Organized Health Care Education/Training Program
DX: I63.39 Cerebral infarction due to thrombosis of other cerebral artery (principal); G81.94 Hemiplegia, unspecified affecting left nondominant side; I25.10 Atherosclerotic heart disease of native coronary artery without angina pectoris; E78.00 Pure hypercholesterolemia, unspecified; R29.702 NIHSS score 2; E11.9 Type 2 diabetes mellitus without complications; Z95.5 Presence of coronary angioplasty implant and graft; Z86.73 Personal history of transient ischemic attack (TIA), and cerebral infarction without residual deficits; Z91.148 Patient's other noncompliance with medication regimen for other reason; Z23 Encounter for immunization; Z87.891 Personal history of nicotine dependence; Z79.4 Long term (current) use of insulin; Z79.82 Long term (current) use of aspirin; Z79.02 Long term (current) use of antithrombotics/antiplatelets; Z79.899 Other long term (current) drug therapy
CPT/HCPCS: 36415; 70450; 70496; 70498; 70551; 80048; 80053; 80061; 81003; 82947; 83036; 83735; 84443; 84484; 85025; 85027; 85610; 90656; 93005; 93306; 97110; 97162; 97165; 99285; J1650

== ENCOUNTER → 2025-01-27 12:16 | Outpatient (BNV) | payer MEDICARE, MEDICAID, SELFPAY | PROVIDERS: Admitting Provider Nurse Practitioner Acute Care; Emergency Provider Emergency Medicine; PCP Hospitalist; Visit Provider Internal Medicine | DX: I25.2 Old myocardial infarction (principal) | CPT/HCPCS: 93010 ==

== ENCOUNTER → 2025-01-27 14:26 | Outpatient (BNV) | payer OTHER, MEDICAID, SELFPAY | PROVIDERS: Emergency Provider Emergency Medicine; Visit Provider Radiology Diagnostic Radiology | DX: G81.92 Hemiplegia, unspecified affecting left dominant side (principal) | CPT/HCPCS: 70450; 70496; 70498; 70551 ==

== ENCOUNTER → 2025-01-28 07:00 | Outpatient (BNV) | payer MEDICARE, MEDICAID, SELFPAY | PROVIDERS: Admitting Provider Nurse Practitioner Acute Care; Emergency Provider Emergency Medicine; Visit Provider Internal Medicine | DX: I51.89 Other ill-defined heart diseases (principal); I25.3 Aneurysm of heart; I34.0 Nonrheumatic mitral (valve) insufficiency | CPT/HCPCS: 93306 ==

== ENCOUNTER → 2025-01-28 09:21 | Outpatient (BNV) | payer OTHER, MEDICAID, SELFPAY | PROVIDERS: Admitting Provider Nurse Practitioner Acute Care; Emergency Provider Emergency Medicine; Visit Provider Psychiatry & Neurology Neurology | DX: I63.39 Cerebral infarction due to thrombosis of other cerebral artery (principal) | CPT/HCPCS: 99223 ==